=== PATIENT | female | born 1990 | race Caucasian/White ===

== ENCOUNTER 2025-08-06 11:15 | Outpatient (CLI) | payer BC, SELFPAY | END 2025-08-06 11:16 | disposition home or self-care (01) | LOC: NFLDREF 08-08 17:38 | PROVIDERS: Visit Provider Advanced Practice Midwife | DX: Z34.93 Encounter for supervision of normal pregnancy, unspecified, third trimester (principal) | CPT/HCPCS: 86592; 86706 ==

== ENCOUNTER 2025-10-03 10:17 | Outpatient (CLI) | payer BC, SELFPAY | END 2025-10-03 10:18 | disposition home or self-care (01) | LOC: NFLDREF 10-11 13:55 | PROVIDERS: Visit Provider Advanced Practice Midwife | DX: Z34.93 Encounter for supervision of normal pregnancy, unspecified, third trimester (principal) | CPT/HCPCS: 87081; 87653 ==